=== PATIENT | female | born 1970 | race Caucasian/White ===

== ENCOUNTER → 2024-05-20 07:11 | Outpatient (CLI) | payer BC, SELFPAY ==
--- NOTE | 2024-05-20 07:14 | DI.MRI.S_ITS ---
PROCEDURE: MR LUMBAR SPINE WO CON INDICATIONS: LUMBAR AND CERVICAL RADICULOPATHY TECHNIQUE: Noncontrast sagittal T1 spin echo and T2 fast echo, sagittal STIR, and T2 fast spin echo through the lumbar spine. In cases with scoliosis, additional coronal T2 fast spin echo may be performed. COMPARISON: None. FINDINGS: Image quality: Excellent. Alignment and Curvature: There is normal bony alignment. Bone Marrow: Marrow is of normal overall signal. No acute vertebral body compression fractures. Spinal Cord: Conus medullaris terminates at the L1 level. Visualized cord demonstrates normal signal and size. Paraspinous Soft Tissues: No paravertebral masses. T12-L1: Normal appearance. L1-L2: Normal appearance. L2-L3: Mild posterior disc bulge and more prominent right foraminal disc bulge. No canal stenosis. Mild bilateral foraminal stenosis. Facet hypertrophy. L3-L4: Facet hypertrophy. Disc bulge. No canal stenosis or significant foraminal stenosis. L4-L5: Disc bulge. Annulus tear. Mild canal stenosis. No significant foraminal stenosis. L5-S1: Disc bulge. Facet hypertrophy. No canal stenosis or foraminal stenosis. IMPRESSION: 1. Multilevel underlying facet arthropathy. 2. Mild canal stenosis at L4-L5. Dictated by: Matthieu Duran M.D. on 05/20/2024 at 13:37 Approved by: Matthieu Duran M.D. on 05/20/2024 at 13:46
--- NOTE | 2024-05-20 07:14 | DI.MRI.S_ITS ---
PROCEDURE: MR CERVICAL SPINE WO CON INDICATIONS: LUMBAR AND CERVICAL RADICULOPATHY TECHNIQUE: Noncontrast sagittal T1 spin echo and T2 fast spin echo, sagittal STIR, foraminal oblique sagittal T2 fast spin echo, and axial gradient echo or T2 fast spin echo through the cervical spine. COMPARISON: None. FINDINGS: Image quality: Excellent. Alignment and Curvature: There is normal bony alignment. Bone Marrow: Marrow demonstrates normal overall signal. Spinal Cord: Visualized spinal cord has normal size and signal. No cerebellar tonsillar herniation. Paraspinous Soft Tissues: No paravertebral masses. Prevertebral soft tissues are normal in thickness. C2-C3: Normal appearance. C3-C4: No canal stenosis or foraminal stenosis. Mild bilateral facet hypertrophy, left greater than right. C4-C5: Mild disc bulge. Mild canal stenosis. AP diameter of the central canal is 9.1 mm. No foraminal stenosis. C5-C6: Chronic disc height loss. Diffuse posterior disc post osteophyte with indentation and flattening on the ventral cord. Moderate canal stenosis. AP diameter of the central canal is 7.7 mm. Reference axial T2 image 28 of series 6. There is bilateral uncovertebral joint hypertrophy and mild facet hypertrophy. There is moderate to severe right foraminal narrowing with a degree of right foraminal C6 nerve root impingement. There is moderate left foraminal narrowing with flattening deformity on the exiting left C6 nerve root. C6-C7: Disc bulge with superimposed mild right paracentral disc protrusion. There is mild central canal stenosis and moderate stenosis of the right side of the canal. There is indentation on the right ventral cord. Central canal measures 9.1 mm on image 33 of series 6. No significant foraminal stenosis. C7-T1: Normal appearance. IMPRESSION: 1. Canal stenosis is mild at C4-C5 and moderate at C5-C6. At C6-C7, there is mild central canal stenosis and moderate stenosis of the right side of the canal. The right side of the canal is narrowed by a disc protrusion. At C5-C6 there is moderate to severe right foraminal narrowing and moderate left foraminal narrowing. Dictated by: Matthieu Duran M.D. on 05/20/2024 at 13:46 Approved by: Matthieu Duran M.D. on 05/20/2024 at 14:03
== END ==
LOC: MRI 07:12
PROVIDERS: PCP Family Medicine; Referring Provider Physical Medicine & Rehabilitation; Visit Provider Physical Medicine & Rehabilitation
DX: M47.812 Spondylosis without myelopathy or radiculopathy, cervical region (principal); M48.02 Spinal stenosis, cervical region; M47.26 Other spondylosis with radiculopathy, lumbar region; M47.27 Other spondylosis with radiculopathy, lumbosacral region; M48.061 Spinal stenosis, lumbar region without neurogenic claudication
CPT/HCPCS: 72141; 72148

== ENCOUNTER → 2024-08-18 18:58 | Outpatient (CLI) | payer BC, SELFPAY ==
--- NOTE | 2024-08-18 19:00 | DI.MRI.S_ITS ---
PROCEDURE: MRFOOT LT WO CON INDICATIONS: LEFT FOOT PAIN TECHNIQUE: Multiphasic, multisequence MRI of the forefoot was performed, without intravenous contrast administration. COMPARISON: [facility], CR, XR FOOT 3+ VIEWS LEFT, 07/08/2023, 19:07. [facility] [place], CR, XR FOOT 3 VIEWS WEIGHT BEARING LEFT, 08/09/2024, 16:39. FINDINGS: Image quality: Excellent. Bones and joints: No acute osseous fracture. Moderate hallux valgus. Moderate degenerative changes at the 1st metatarsophalangeal joint with cartilage loss, subchondral cystic changes, and marginal osteophytes. There is very mild lateral subluxation of the hallux sesamoids and mild metatarsal-sesamoid degenerative changes. Mild degenerative changes at the 2nd tarsometatarsal joint with mild subchondral edema. Mild osseous edema at the plantar aspect of the 2nd metatarsal head may be reactive versus secondary to an osseous contusion, degenerative changes, or less likely repetitive stress. Soft tissues: Soft tissue edema and fluid are seen surrounding the 2nd flexor tendons beginning and the distal metatarsal and throughout the toe. No focal tendon tearing is seen. The remaining visualized flexor and extensor tendons are intact. Mild nonspecific subcutaneous thickening plantar to the 5th metatarsal head likely chronic pressure related changes. The visualized plantar foot muscles demonstrate normal signal and bulk. The distal insertions of the peroneus brevis and longus tendons appear intact. The principal Lisfranc ligament appears intact. No soft tissue ganglion cysts or bursal fluid collections. Sagittal images demonstrate no evidence for plantar plate tears. IMPRESSION: 1. Moderate tenosynovitis of the 2nd flexor tendons. 2. Mild osseous edema at the plantar aspect of the 2nd metatarsal head may be reactive to the adjacent tenosynovitis versus secondary to degenerative changes, contusion, or repetitive stress. 3. Moderate hallux valgus and moderate degenerative changes at the 1st metatarsophalangeal joint and metatarsal-sesamoid articulations. Approved by: Tank Campuzano M.D. on 08/19/2024 at 10:17
== END ==
LOC: MRI 18:59
PROVIDERS: PCP Family Medicine; Referring Provider Orthopaedic Surgery Foot and Ankle Surgery; Visit Provider Orthopaedic Surgery Foot and Ankle Surgery
DX: M20.12 Hallux valgus (acquired), left foot (principal); M65.872 Other synovitis and tenosynovitis, left ankle and foot; M79.672 Pain in left foot; R60.0 Localized edema
CPT/HCPCS: 73718